=== PATIENT | female | born 1955 ===

== ENCOUNTER 2018-10-01 09:28 | Inpatient (IN) | payer OTHER ==
--- NOTE | 2018-09-29 11:13 | GHP ---
DATE OF ADMISSION: 10/01/2018 DATE OF SURGERY: She will be an a.m. admission [facility], [facility]. PROBLEM: Right hip severe degenerative arthritis. HISTORY OF PRESENT ILLNESS: The patient is a 63-year-old woman admitted for a right total hip arthro plasty. She states that she has been aware of trouble with her right hip for years. Two years ago s he had an x-ray and was told that she had arthritis. She is having daily pain and night pain. It is painful to walk. Her activities are very restricted. No history of childhood hip disease. 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 She is currently walking with 2 canes. In July she had stem cell injections into her right hip and probably also had PRP injections. S he has failed nonsurgical treatment and is admitted for a right total hip arthroplasty. PAST MEDICAL HISTORY: She has had a previous parathyroidectomy. She has a parathyroid adenoma. 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 No history of heart disease, stents, DVT, hepatitis, MRSA staph infections, sleep apnea or bleeding problems. CURRENT MEDICATIONS: None. DRUG ALLERGIES: Vicodin causes nausea. She has a questionable penicillin allergy as an . Met al allergy: None. Latex allergy: None. SOCIAL HISTORY: The patient does not smoke cigarettes and occasionally drinks alcohol. She is curre ntly not working. She is . She does not have a primary care doctor. PHYSICAL EXAMINATION: VITAL SIGNS: Height 5 feet 4 inches. Weight 115 pounds. BMI 19.7. EYES: C onjunctivae and sclerae are clear. Pupils are round and reactive. MOUTH: Good oral hygiene. No lo ose teeth. CHEST: Clear. HEART: Regular rhythm. No murmurs. EXTREMITIES: Pertinent findings li mited to her right hip. She has full hip extension and 100 degrees of flexion. External rotation 20 degrees. Internal rotation 0 degrees. Abduction 30 degrees. IMAGING: Films show very severe degenerative arthritis in her right hip. She has no remaining carti annita space. She has extensive cystic degeneration in her femoral head and in the acetabulum. She is about 2 mm short on the right. She has osteopenia. Some scoliosis is visible in her lower lumbar s pine. IMPRESSION ON ADMISSION: 1. Right hip severe degenerative arthritis. 2. Left knee anterior cruciate ligament deficiency and previous open medial meniscectomy. 3. Status post parathyroidectomy with parathyroid adenoma. PLAN: She will undergo a right total hip arthroplasty. The surgery has been described to her, inclu ding the risks, complications, expectations, and recovery time. I have discussed with her and with h er the risk of dislocation, leg length inequality, infection, and sciatic nerve injury. All their questions have been answered, and she consents to surgery. /[id number]/MODL
[~2018-10-01 09:28] MED LIST: POVIDONE-IODINE 20 ML in SODIUM CL IRRIG SOLUTION 500 ML IRR ONE; ROPIVACAINE 0.2% 80 MG, EPINEPHrine 0.2 MG, KETOROLAC TROMETHAMINE 30 MG in SYRINGE 0 ML IU ONE; TRANEXAMIC ACID 1,000 MG in NS 100 ML IV ONE; TRANEXAMIC ACID 3,000 MG in NS (SYRINGE) 50 ML IRR ONE
[2018-10-01] MEDS ORDERED: DEXAMETHASONE 4 MG/ML VIAL IVP ONE (09:57)
[2018-10-01] MEDS ORDERED: GABAPENTIN 300 MG CAP PO ONE (09:57)
[2018-10-01] MEDS ORDERED: LIDOCAINE 1% 2 ML INJ ID PRN (09:57)
[2018-10-01] MEDS ORDERED: FAMOTIDINE 20 MG TAB PO ONE (09:57)
[2018-10-01] MEDS ORDERED: ACETAMINOPHEN 325 MG TAB PO ONE (09:57)
[2018-10-01] MEDS ORDERED: ONDANSETRON 4 MG/2 ML VIAL IVP ONE (09:57)
[2018-10-01] MEDS ORDERED: ceFAZolin 2 GM/DEXTROSE 100 ML IV ONE (09:57)
[2018-10-01] MEDS ORDERED: LR 1,000 ML IV ONE (09:57)
[2018-10-01] MEDS ORDERED: TRANEXAMIC ACID 3,000 MG/50 ML BAG IRR ONE (10:04)
[2018-10-01] MEDS ORDERED: ceFAZolin 1 GM/5 ML SYR ONE (10:05)
--- NOTE | 2018-10-01 10:27 | PDANEPAE ---
ANE Past Medical History - Cardiovascular History Hx Hypertension: No Hx Arrhythmias: No Hx Chest Pain: No Hx Coronary Artery / Peripheral Vascular Disease: No Hx CHF / Valvular Disease: No Hx Palpitations: No - Pulmonary History Hx COPD: No Hx Asthma/Reactive Airway Disease: No Hx Recent Upper Respiratory Infection: No Hx Oxygen in Use at Home: No Hx Sleep Apnea: No Sleep Apnea Screening Result - Last Documented: Negative - Neurologic History Hx Cerebrovascular Accident: No Hx Seizures: No Hx Dementia: No - Endocrine History Hx Diabetes: No Hypothyroid: Yes Hyperthyroid: No Obesity: no - Renal History Hx Renal Disorders: No Renal History Comment: PASSED KIDNEY STONES IN THE PAST - Liver History Hx Hepatic Disorders: No - Neurological & Psychiatric Hx Hx Neurological and Psychiatric Disorders: No - Cancer History Hx Cancer: No - Congenital Disorder History Hx Congenital Disorders: No - GI History GERD: no Hx Gastrointestinal Disorders: No - Other Health History Other Health History: RUPALI ATHLETES FOOT USES DAILY OTC SPRAY FOT ITCHING. OSTEOARTHRITIS. MILD SCOLOSIS. HAS TORN LT ACL - Chronic Pain History Chronic Pain: Yes (RT KNEE) - Surgical History Prior Surgeries: LT KNEE SCOPE. PARATHYROIDECTOMY. D&C ANE Review of Systems Review of Systems: - Exercise capacity Exercise capacity: >=4 METS, limited by disability METS (RN): 4 METS ANE Patient History - Allergies Allergies/Adverse Reactions: codeine Allergy (Verified 09/22/18 11:49) Vomiting Penicillins Allergy (Verified 10/01/18 10:19) Rash - Home Medications Home Medications: Cholecalciferol Vit D3 [Vitamin D3 2000 units tab (OTC)] 6,000 units PO DAILY [Last Taken 09/24/18] Herbals/Supplements -Info Only 1 ea PO DAILY 09/22/18 [Last Taken 09/24/18] Multivitamins [Multivitamin (*)] 1 each PO DAILY 09/22/18 [Last Taken 09/24/18] Progesterone, Micronized [Progesterone] 100 mg PO DAILY 09/22/18 [Last Taken ] Vitamin B Complex [Vitamin B Complex (OTC)] 1 each PO DAILY 09/22/18 [Last Taken 09/24/18] Athlete's Foot DAILY 09/23/18 [Last Taken Unknown] - NPO status NPO Since - Liquids (Date): 10/01/18 NPO Since - Liquids (Time): 07:00 NPO Since - Solids (Date): 09/30/18 NPO Since - Solids (Time): 22:00 - Anes Hx Anes Hx: no prior problems - Smoking Hx Smoking Status: Never smoked - Alcohol Use Alcohol Use: Rarely - Family Anes Hx Family Anes Hx: neg - N/A ANE Labs/Vital Signs - Vital Signs Blood Pressure: 143/74 Heart Rate: 60 Respiratory Rate: 18 O2 Sat (%): 99 Height: 162.56 cm Weight: 52.163 kg ANE Physical Exam - Airway Neck exam: FROM Mallampati Score: Class 2 Mouth exam: normal dental/mouth exam - Pulmonary Pulmonary: no respiratory distress, no rales or rhonchi, clear to auscultation - Cardiovascular Cardiovascular: regular rate and rhythym, no murmur, rub, or gallop - ASA Status ASA Status: II ANE Anesthesia Plan Anesthesia Plan: MAC, spinal Total IV Anesthesia: No
[2018-10-01] MEDS ORDERED: MIDAZOLAM 2 MG/2 ML VIAL IVP ONE (10:28)
--- NOTE | 2018-10-01 10:42 | PDHPUP ---
History & Physical Update H&P update statement: This history and physical update is based on an assessment of the patient which was completed after admission or registration (within 24 hours), but prior to the surgery/procedure. H&P update: H&P reviewed & patient examined
[2018-10-01] MEDS ORDERED: fentaNYL 100 MCG/2 ML INJ ONE (11:16)
[2018-10-01] MEDS ORDERED: BUPIVACAINE/DEXTROSE 7.5MG/ML 2 ML SPINAL AMP SP ONE (11:16)
[2018-10-01] MEDS ORDERED: ePHEDrine SULFATE 25 MG/5 ML SYR ONE (11:46)
[2018-10-01] MEDS ORDERED: NALOXONE HCL 0.4 MG/ML INJ IVP PRN (11:49)
[2018-10-01] MEDS ORDERED: PHENYLEPHRINE HCL 100 MCG/ML SYR IVP PRN (11:49)
[2018-10-01] MEDS ORDERED: PROMETHAZINE HCL 25 MG/ML INJ IVP PRN ×2 (11:49→13:02)
[2018-10-01] MEDS ORDERED: LR 500 ML IV PRN (11:49)
[2018-10-01] MEDS ORDERED: ONDANSETRON 4 MG/2 ML VIAL IVP PRN ×2 (11:49→13:02)
[2018-10-01] MEDS ORDERED: PROPOFOL 200 MG/20 ML VIAL ONE (12:31)
--- NOTE | 2018-10-01 12:48 | POSTOPPROG ---
Post Op Note Date of Operation: 10/01/18 Surgeon: Santos Jay Senior Research Fellow: Bernice Anesthesiologist: Dr. Andrew Pickens Anesthesia: IV Sedation, Spinal Post-op Diagnosis: Right hip severe degenerative arthritis Procedure: Right total hip arthroplasty Inf/Abcess present in the surg proc area at time of surgery?: No EBL: 100-500
[2018-10-01] MEDS ORDERED: DIPHENOXYLATE/ATROPINE LOMOTIL 1 TAB PO PRN (13:02)
[2018-10-01] MEDS ORDERED: POLYETHYLENE GLYCOL 3350 17 GM PKT PO PRN (13:02)
[2018-10-01] MEDS ORDERED: ONDANSETRON DISINTEGRATING 4 MG TAB PO PRN (13:02)
[2018-10-01] MEDS ORDERED: CYCLOBENZAPRINE 10 MG TAB PO PRN (13:02)
[2018-10-01] MEDS ORDERED: diphenhydrAMINE 25 MG CAP PO PRN (13:02)
[2018-10-01] MEDS ORDERED: BISACODYL 10 MG SUPP PR PRN (13:02)
[2018-10-01] MEDS ORDERED: MAGNESIUM HYDROXIDE 30 ML UDCUP PO PRN (13:02)
[2018-10-01] MEDS ORDERED: NS 500 ML IV PRN (13:02)
[2018-10-01] MEDS ORDERED: PROMETHAZINE HCL 25 MG SUPPR PR PRN (13:02)
[2018-10-01] MEDS ORDERED: traMADol 50 MG TAB PO PRN (13:02)
[2018-10-01] MEDS ORDERED: LACTULOSE 20 GM/30 ML UDCUP PO PRN (13:02)
[2018-10-01] MEDS ORDERED: TEMAZEPAM 15 MG CAP PO PRN (13:02)
[2018-10-01] MEDS ORDERED: METOCLOPRAMIDE 10 MG/2 ML VIAL IVP PRN (13:02)
--- NOTE | 2018-10-01 13:27 | PDMN ---
Medical Necessity Medical necessity: Pt meets IP criteria per and [facility] S-560 (Hip Arthroplasty) , [facility] IP only procedure.
[2018-10-01] MEDS ORDERED: LR 1,000 ML IV SCH (13:30)
--- NOTE | 2018-10-01 13:48 | POSTANESTH ---
Post Anesthetic Evaluation Cardiovascular Status: Normal, Stable Respiratory Status: Normal, Stable Level of Consciousness/Mental Status: Can Participate in Eval Pain Control: Adequate, Prn Tx Ordered Nausea/Vomiting Control: Adequate, Prn Tx Ordered Complications Possibly Related to Anesthesia: None Noted
--- NOTE | 2018-10-01 14:44 | GOP ---
DATE OF OPERATION: 10/01/2018 SURGEON: Santos Jay MD TOLL TICKET CLERK: RASHEED Betts. Chidi Dong CFA. ANESTHESIA: A combination of Marcaine, spinal, and IV sedation. ANESTHESIOLOGIST: Alexia Pickens DO. PREOPERATIVE DIAGNOSIS: Right hip severe degenerative arthritis. POSTOPERATIVE DIAGNOSIS: Right hip severe degenerative arthritis. PROCEDURE PERFORMED: A right total hip arthroplasty, ceramic femoral head on highly cross-linked raissa yethylene cup liner. FINDINGS: ESTIMATED BLOOD LOSS: About 300 mL. DESCRIPTION OF PROCEDURE: The patient was given 2 g of IV Ancef preoperatively within 60 minutes of surgery. She also received 1000 mg of IV tranexamic acid. She was placed on the operating room tabl e and given spinal anesthesia with Marcaine by Dr. Pickens. She was then placed supine and given IV sedation. A Crews catheter was not used. She wore a SU stocking and SCD on the nonoperative le g. She was rolled to the left lateral decubitus position. The position was secured with the pegboar d table attachment. An axillary roll was used, and all pressure points were carefully padded. I was careful to lock her pelvis in a rigid vertical position. Her perineum was isolated with plastic adh esive drapes. Her right hip and right lower extremity were prepped with ChloraPrep. They were drape d free using sterile sheets, stockinette, and Ioban plastic drapes. The World [employer] Organization time-out was performed to verify the correct patient identity and the c orrect surgical side and site. The [place] time-out was also performed. I made a 5-inch straight oblique posterolateral hip skin incision. The subcutaneous tissues were sha rply divided, and hemostasis was obtained using electrocautery. Her fascia saran was identified and s plit distally along the axis of its fibers. I then curved posteriorly and proximally and split the f ascia of gluteus seng and bluntly split the muscle fibers in line with their orientation. The Tia manzanares self-retaining retractor was inserted. Her sciatic nerve was located, partially exposed, and p rotected throughout the procedure. The external rotators and the posterior hip capsule were divided as separate layers at the base of the femoral neck, tagged, and reflected posteriorly. A smooth 8-in ch Steinmann pin was inserted vertically into the ilium, superior to the acetabulum. An 8-inch drill bit was inserted vertically into the greater trochanter and parallel to the first pin. The distance between the two was measured for leg length reference. Her femoral head was dislocated posteriorly. She had severe degenerative changes on the femoral head with flattening of the femoral head. Her f emoral neck was osteotomized at the appropriate level and angle. I was careful to preserve all the posterior capsule and most of the anterior capsule. The remnant of her damaged labrum was excised. I prepared the femur first. This allowed me to line patrolman the amount of natural femoral neck anteversion. This, in turn, allowed me to later determine the correct amount of cup anteversion. She had approx imately 10-12 degrees of natural femoral neck anteversion. Her canal was opened laterally with a box chisel. I hand broached sequentially up to size 5. I used the Lionel Accolade II high offset broa ch in a size 5 as a trial stem. I was careful to lateralize adequately. Appropriate retractors were inserted to expose the acetabulum. The acetabulum was reamed sequentiall y up to 54 mm. She had 2 degenerative cysts in the superior aspect of her acetabulum. These were cur etted down to healthy bone. I created a slurry of bone graft by reaming the cut neck surface of the removed femoral head. The bone graft was packed into the 2 cysts. I selected a 54 mm Tritanium Trid ent 2-cluster hole hemispherical shell. This was tapped securely into place in the proper degree of inclination, anteversion. I used the transverse acetabular ligament and other acetabular bony landma rks to help me properly orient the cup. The cup fixation was tight and supplemental screws were not necessary. She had some anterior acetabular osteophytes which I removed with an osteotome and rongeu r. I performed a series of trial reductions to determine length and stability. I concluded that the siz e 5 stem with a -2.5 mm neck length, a high offset with a 36 mm head and a 10 degree lipped liner gav e me the proper combination of appropriate length and good anterior and posterior stability. I took an intraoperative AP pelvis x-ray. It showed good position of the cup and stem. The 10-degree lip S tryker X3 highly cross-linked polyethylene liner was inserted and tapped securely into place. I monroe cted the Lionel Accolade II stem in a high offset in size 5. This was inserted press-fit and was ve ry tight. I did 1 final trial reduction and confirmed that the -2.5 mm neck length with a 36 mm head was the proper combination. The Lionel Biolox Delta ceramic head with an outside diameter of 36 mm and a neck length of -2.5 mm was tapped securely onto the clean trunnion. The acetabulum was irriga su and cleaned, and the hip was reduced 1 final time. She had excellent anterior and posterior stab ility and appropriate length. She was a few millimeters short preoperatively, and I was intentionall y lengthening her a small amount. 40 mL of the joint anesthetic cocktail was injected into the capsule, the deep musculature, and the s ubcutaneous tissues around the skin edges. The joint was thoroughly irrigated 1 final time with a di lute Betadine solution. Her sciatic nerve was reinspected and looked unharmed. 50 cc of tranexamic acid solution was irrigated into the wound. The external rotators and the posterior hip capsule were repaired in separate layers with #2 FiberWir e sutures through drill holes in the greater trochanter. This provided a strong posterior capsular a nd external rotator repair. The fascia saran was closed first with 2 [id number] #2 FiberWire sut ures followed by a running #2 barbed Ethicon Stratafix PDO suture. Subcutaneous tissues were closed with a running 0 barbed Ethicon Stratafix Monoderm suture. The skin was closed with a running 3-0 ba rbed Ethicon Stratafix Monoderm subcuticular suture. The skin edges were reapproximated and sealed w ith Dermabond glue. The wound was covered with a large piece of waterproof Mepilex surgical dressing . A Mepilex sacral dressing was also applied. A long-leg SU stocking and SCD were applied to her right lower extremity. She wore a stocking and S CD on the opposite leg during the procedure. An abduction pillow was placed between her knees. She was awakened from anesthesia and rolled to the supine position on her [facility]. She was taken to PACU in satisfactory condition. There were no recognized intraoperative complications. COUNTS: The sponge and needle count was correct on 2 occasions. COMPONENTS: I used a [place] Tritanium Trident II hemispherical cluster hole acetabular shell with a n outside diameter of 54 mm. The liner was a [place] X3 10-degree lipped highly cross-linked liner w ith an outside diameter of 54 mm. The femoral component was a press-fit [place] high-offset Accolade II stem in a size 5. The femoral head was a Lionel Biolox Delta ceramic head with a -2.5 mm neck l ength and a 36 mm outside diameter. Armaan Shukla and Chidi Dong acted as surgical assistants. Their assistance was a medical necess ity for safe completion of the procedure. Copy requested to: Armaan Shukla [facility] Chidi Dong [facility], [place] /[id number]/MODL
[2018-10-01] MEDS: KETOROLAC 15 MG/1 ML SDV IVP SCH (18:01)
[2018-10-01] MEDS: ACETAMINOPHEN 325 MG TAB PO SCH (18:01)
[2018-10-01] MEDS: FAMOTIDINE 20 MG TAB PO SCH (21:46)
[2018-10-01] MEDS: SENNOSIDES/DOCUSATE SODIUM TAB PO SCH (21:46)
[2018-10-01] MEDS: oxyCODONE IR 5 MG TAB PO PRN (21:47)
[2018-10-01] MEDS: ASPIRIN 325 MG TAB PO SCH (21:51)
[2018-10-01] MEDS: ceFAZolin 2 GM/DEXTROSE 100 ML IV SCH (21:54)
[2018-10-02] MEDS: ACETAMINOPHEN 325 MG TAB PO SCH ×3 (01:09→12:06)
[2018-10-02] MEDS: KETOROLAC 15 MG/1 ML SDV IVP SCH ×3 (01:10→12:06)
[2018-10-02] MEDS: ceFAZolin 2 GM/DEXTROSE 100 ML IV SCH (03:43)
--- NOTE | 2018-10-02 07:24 | SOAPPROG ---
SOAP Progress Note Assessment/Plan: Assessment: Afebrile. Awake and alert. Moderate pain. The patient has been up and walking in the room. H&H is satisfactory. Her dressing is dry. Postop films look excellent. Sciatic nerve intact. Plan: Up with physical therapy today for walking in the [place] and stairs. Discharge later today. 10/02/18 07:24 Objective: Vital Signs Temp Pulse Resp BP Pulse Ox 36.4 C 68 15 137/58 H 100 10/02/18 03:38 10/02/18 03:38 10/02/18 03:38 10/02/18 03:38 10/02/18 03:38 Laboratory Results 10/02/18 04:44 10/01/18 10/02/18 10/03/18 05:59 05:59 05:59 Intake Total 4045 Output Total 0290 Balance 1595 ICD10 Worksheet Patient Problems: Problems Problem Status Onset Osteoarthritis of right hip Acute
--- NOTE | 2018-10-02 07:40 | GDS ---
ADMISSION DIAGNOSIS: Right hip severe degenerative arthritis. DISCHARGE DIAGNOSIS: Right hip severe degenerative arthritis. OPERATION PERFORMED: 10/01/2018, right total hip arthroplasty. POSTOPERATIVE COMPLICATIONS: None. CONDITION ON DISCHARGE: Improved. DESCRIPTION OF HOSPITAL COURSE: The patient was admitted to the hospital on the morning of surgery. Her admission CBC was normal. The same day, under a combination of Marcaine, spinal, and IV sedatio n, she underwent a right total hip arthroplasty. Postoperatively, she was treated with multimodal DV T prophylaxis, including aspirin. On the first postoperative day, her hemoglobin and hematocrit were 9.5 and 28.3. She did not require transfusion. She was seen by Physical Therapy and made good prog ress with ambulation and stairs, walking with a walker, weightbearing as tolerated on the right. By the time of discharge, she was afebrile, her wound was clean and dry, and she was independent walking with a walker. DISPOSITION: The patient is discharged to her home. She may progress to full weightbearing as trevon ated. Use an abduction pillow in bed for 3 weeks. Use SU stockings for 1 week. Continue aspirin 3 25 mg p.o. daily for 21 days. She has prescriptions for Celebrex, oxycodone and tramadol for pain co ntrol. I will see her back in the office on 10/30/2018. She will start outpatient physical therapy at my office next week. She does not have a primary care doctor. /[id number]/MODL
[2018-10-02] MEDS: SENNOSIDES/DOCUSATE SODIUM TAB PO SCH (08:14)
[2018-10-02] MEDS: ASPIRIN 325 MG TAB PO SCH (08:14)
[2018-10-02] MEDS: FAMOTIDINE 20 MG TAB PO SCH (08:15)
[2018-10-02] MEDS: oxyCODONE IR 5 MG TAB PO PRN (08:20)
[2018-10-02] MEDS ORDERED: PROGESTERONE,MICR 100 MG CAP PO SCH (09:00)
--- NOTE | 2018-10-02 09:47 | ASDISCHSUM ---
Discharge Information Plan Status:Home with No Needs Medically Cleared to Leave:10/01/2018 Discharge Date:10/01/2018 CM D/C Disposition:Home, Routine, Self-Care ADT D/C Disposition:Home, Routine, Self-Care Projected Discharge Date:10/01/2018 Transportation at D/C: Discharge Delay Reason: Follow-Up Date:10/01/2018 Discharge Slot: Final Diagnosis: Placement Information Patient Contact Information Contact Name:MARINA Relationship:Jose L Address:[address] City:[place] Alternate Phone: [facility]/Zip Code:[place] [address] Email: Financial Information Financial Class:Medicare Primary Plan Desc:MEDICARE INPATIENT Primary Plan Number:[id number] Secondary Plan Desc:PATY Secondary Plan Number:[id number] Assessment Information LACE LACE Length of stay for Answers: 1 day current admission Acuity / Level of Answers: Yes Care: Did the patient have an inpatient admission? Comorbidities - select Answers: Opioid dependence all that apply / Chronic pain # of Emergency department Answers: 0 visits in the last 6 months Score: 8 Date Signed: 10/02/2018 09:44 AM Electronically Signed By:Norah Raines RN Case Management Discharge Plan Note Case Management Discharge Discharge Order Complete? Answers: Yes Discharge Comments Notes: 10/02/2018 Case Management Note There are no case management d/c needs identified. Pt to discharge home with follow up as directed. Date Signed: 10/02/2018 09:45 AM Electronically Signed By:Norah Raines RN Intervention Information
[2018-10-02 11:37] VITALS: BP 105/54
== END 2018-10-02 13:08 | disposition home or self-care (01) | DRG 470 ==
LOC: F3N 09:28
PROVIDERS: ADMIT Orthopaedic Surgery; ATTEND Orthopaedic Surgery
PROC: 0SR904Z Replacement of Right Hip Joint with Ceramic on Polyethylene Synthetic Substitute, Open Approach (ICD-10-PCS; principal; 2018-10-01 11:00)
DX: M16.11 Unilateral primary osteoarthritis, right hip (principal); E03.9 Hypothyroidism, unspecified
CPT/HCPCS: 97116-GP; 97161-GP; 97165-GO; 97535-GO; G8978-GP-CJ; G8979-GP-CI; G8980-GP-CI; G8987-GO-CI; G8988-GO-CI; G8989-GO-CI; J0171; J0690; J1100; J1885; J2250; J2405; J2704; J2795; J3010